=== PATIENT | male | born 1995 ===

== ENCOUNTER 2016-05-26 19:53 | Emergency (ER) | payer SELFPAY ==
[2016-05-26 20:07] VITALS: BMI 29.9
[2016-05-26 20:10] VITALS: RESP 18; TEMP 99.1
[2016-05-26] MEDS ORDERED: DiphenhydrAMINE 50 mg/ml Inj IVP STA (20:24)
--- NOTE | 2016-05-26 20:28 | ED PDOC ---
Arrival/HPI - General Chief Complaint: GI Problem Time Seen by Provider: 05/26/16 20:10 - History of Present Illness Narrative History of Present Illness (Text): 05/26/16 20:25 21 yo male, presents with jurado, n/v, and sore throat. pt states symptoms "worsening over last few days". no fevers, no (+)nausea vomiting, no cough, no urianry changes. took motrin at home. Past Medical History - Provider Review Nursing Documentation Reviewed: Yes - Past History Past History: No Previous - Infectious Disease Hx of Infectious Diseases: None - Tetanus Immunization Tetanus Immunization: Unknown - Past Medical History Past Medical History: No Previous - Psychiatric Hx Psychophysiologic Disorder: No Hx Anxiety: No Hx Bipolar Disorder: No Hx Depression: No Hx Emotional Abuse: No Hx Hallucinations: No Hx Panic Disorder: No Hx Post Traumatic Stress Disorder: No Hx Psychosis: No Hx Physical Abuse: No Hx Schizophrenia: No Hx Sexual Abuse: No Hx Substance Use: No - Surgical History Hx Appendectomy: Yes (2006) - Anesthesia Hx Anesthesia: Yes Hx Anesthesia Reactions: No Hx Malignant Hyperthermia: No - Suicidal Assessment Feels Threatened In Home Enviroment: No Family/Social History - Physician Review Nursing Documentation Reviewed: Yes Family/Social History: Unknown Family HX Smoking Status: Never Smoked Hx Alcohol Use: Yes Frequency of alcohol use: Socially Hx Substance Use: No Hx Substance Use Treatment: No Allergies/Home Meds Allergies/Adverse Reactions: Allergies No Known Allergies Allergy (Verified 09/16/12 14:15) Review of Systems - Review of Systems Constitutional: Normal Eyes: Normal ENT: Normal Respiratory: Normal Cardiovascular: Normal Gastrointestinal: Nausea, Vomiting Genitourinary Male: Normal Musculoskeletal: Normal Skin: Normal Neurological: Headache Endocrine: Normal Hemo/Lymphatic: Normal Psychiatric: Normal Physical Exam Vital Signs Temp Pulse Resp BP Pulse Ox 05/26/16 20:09 99.1 F 89 18 131/77 99 Temperature: Afebrile Blood Pressure: Normal Pulse: Regular Respiratory Rate: Normal Appearance: Positive for: Well-Appearing, Non-Toxic, Comfortable Pain Distress: None Mental Status: Positive for: Alert and Oriented X 3 - Systems Exam Head: Present: Atraumatic, Normocephalic, Other (no meningmus, ambulatory, in nad, smiling. ) Pupils: Present: PERRL Extroacular Muscles: Present: EOMI Conjunctiva: Present: Normal Mouth: Present: Moist Mucous Membranes Pharnyx: Present: ERYTHEMA, EXUDATE Neck: Present: Normal Range of Motion Respiratory/Chest: Present: Clear to Auscultation, Good Air Exchange. No: Respiratory Distress, Accessory Muscle Use Cardiovascular: Present: Regular Rate and Rhythm, Normal S1, S2. No: Murmurs Abdomen: Present: Normal Bowel Sounds. No: Tenderness, Distention, Peritoneal Signs Back: Present: Normal Inspection Upper Extremity: Present: Normal Inspection. No: Cyanosis, Edema Lower Extremity: Present: Normal Inspection. No: Edema Neurological: Present: GCS=15, CN II-XII Intact, Speech Normal, Motor Func Grossly Intact, Normal Sensory Function, Normal Cerebellar Funct, Gait Normal, Memory Normal Skin: Present: Warm, Dry, Normal Color. No: Rashes Psychiatric: Present: Alert, Oriented x 3, Normal Insight, Normal Concentration Medical Decision Making ED Course and Treatment: 05/26/16 21:36 suspected benign jurado. no thunderclap features, no meningmus. pt well appearing in nad, watching tv. labs unremarkable. pt in nad, no menigmus, neuro intact. ambulatory, asking for dc - Lab Interpretations Lab Results: 05/26/16 20:43 05/26/16 20:43 Lab Results 05/26/16 20:43: WBC 7.5, RBC 5.24, Hgb 15.0, Hct 43.9, MCV 83.8, MCH 28.6, MCHC 34.2, RDW 12.4, Plt Count 295, MPV 9.5, Gran % 65.2, Lymph % (Auto) 26.9, Cobb % (Auto) 7.0 H, Eos % (Auto) 0.8 L, Baso % (Auto) 0.1, Gran # 4.88, Lymph # 2.0 , Cobb # 0.5, Eos # 0.1, Baso # 0.01, PT 11.7, INR 1.08, APTT 28.2, Sodium 141, Potassium 4.0, Chloride 99, Carbon Dioxide 32, Anion Gap 14, BUN 17, Creatinine 0.9, Est GFR ( Amer) > 60, Est GFR (Non-Af Amer) > 60, Random Glucose 76 , Calcium 9.2, Total Bilirubin 0.8, AST 30, ALT 31, Alkaline Phosphatase 69, Total Protein 8.4 H, Albumin 4.6, Globulin 3.8, Albumin/Globulin Ratio 1.2, Grp A Beta Strep Ag Negative - Medication Orders Current Medication Orders: Discontinued Medications Diphenhydramine HCl (Benadryl) 25 mg IVP STAT STA Stop: 05/26/16 20:25 Last Admin: 05/26/16 21:12 Dose: 25 MG IVP Administration Document 05/26/16 21:12 SS (Rec: 05/26/16 21:12 SS [id number]) Charges for Administration # of IVP Administrations 1 Sodium Chloride (Sodium Chloride 0.9%) 1,000 mls @ 999 mls/hr IV .Q1H1M STA Stop: 05/26/16 21:35 Last Admin: 05/26/16 21:07 Dose: 999 MLS/HR eMAR Start Stop Document 05/26/16 21:07 SS (Rec: 05/26/16 21:08 SS [id number]) Intravenous Solution Start Date 05/26/16 Start Time 21:08 End Date 05/26/16 End time 22:09 Total Infusion Time 61 Metoclopramide HCl (Reglan) 10 mg IVP STAT STA Stop: 05/26/16 20:25 Last Admin: 05/26/16 21:12 Dose: 10 MG IVP Administration Document 05/26/16 21:12 SS (Rec: 05/26/16 21:12 SS [id number]) Charges for Administration # of IVP Administrations 1 Disposition/Present on Arrival - Present on Arrival Any Indicators Present on Arrival: No History of DVT/PE: No History of Uncontrolled Diabetes: No Urinary Catheter: No History of Decub. Ulcer: No History Surgical Site Infection Following: None - Disposition Have Diagnosis and Disposition been Completed?: Yes Diagnosis: Headache Disposition: HOME/ ROUTINE Disposition Time: 21:38 Condition: STABLE Discharge Instructions (ExitCare): Acute Headache (DC) Additional Instructions: please follow up with your doctor/clinic and specialist return to er with worsening symptoms or concerns Referrals: PCP,NO [Primary Care Provider] - Follow up with primary [facility] at [facility] [place] [Outside] - Follow up with primary [facility] [Outside] - Follow up with primary Juanjose Hudson MD [Staff Provider] - Follow up with primary
[2016-05-26] MEDS ORDERED: Sodium Chloride 0.9% 1,000 ML IV STA (20:35)
[2016-05-26 20:51] LABS: ADD MANUAL DIFF? NO
[2016-05-26 20:57] LABS: BASO # 0.01 K/mm3 (0.0-2.0); BASO % 0.1 % (0.0-3.0); EOS # 0.1 (0.0-0.7); EOS % 0.8 % (1.5-5.0); GRAN # 4.88 (1.4-6.5); GRAN % 65.2 % (50.0-68.0); HEMATOCRIT 43.9 % (42.0-52.0); LYMPH % 26.9 % (22.0-35.0); MEAN CELL VOLUME 83.8 fL (80.0-105.0); MEAN CORPUSCULAR HEMOGLOBIN 28.6 pg (25.0-35.0); MEAN CORPUSCULAR HGB CONC 34.2 g/dl (31.0-37.0); MEAN PLATELET VOLUME 9.5 fl (7.0-11.0); MONO # 0.5 (0.1-0.6); PLATELET COUNT 295 10^3/uL (120.0-450.0); RED CELL DISTRIBUTION WIDTH 12.4 % (11.5-14.5); WHITE BLOOD COUNT 7.5 10^3/ul (4.5-11.0)
[2016-05-26 21:08] LABS: INR 1.08 (0.93-1.08); PARTIAL THROMBOPLASTIN TIME 28.2 Seconds (23.7-30.8)
[2016-05-26 21:12] LABS: ALB/GLOB RATIO 1.2 (1.1-1.8); ALKALINE PHOSPHATASE 69 U/L (38-133); ALT/SGPT 31 U/L (7-56); AST/SGOT 30 U/L (15-59); BILIRUBIN,TOTAL 0.8 mg/dL (0.2-1.3); BLOOD UREA NITROGEN 17 mg/dL (7-21); CALCIUM 9.2 mg/dL (8.4-10.5); CARBON DIOXIDE 32 mmol/L (21-33); CHLORIDE 99 mmol/L (98-107); GFR AFRICAN-AMERICAN > 60; GLUCOSE,RANDOM 76 mg/dL (70-110); SODIUM 141 mmol/L (132-148); TOTAL PROTEIN 8.4 g/dL (5.8-8.3)
[2016-05-26 22:18] VITALS: BP 127/62; PULSE 79; O2SAT 100
== END 2016-05-26 22:18 | disposition home or self-care (01) ==
LOC: ED 19:53
DX: R51 Headache (principal)
CPT/HCPCS: 80053; 85025; 85610; 85730; 87070; 87430; 96361; 96374; 96375; 99283; J1200; J2765; J7040

== ENCOUNTER 2016-06-26 08:45 | Emergency (ER) | payer OTHER ==
[2016-06-26 08:45] VITALS: BMI 29.9
[2016-06-26 09:11] VITALS: RESP 16; TEMP 98.8
--- NOTE | 2016-06-26 09:36 | ED PDOC ---
Arrival/HPI - General Historian: Patient - General Chief Complaint: Upper Extremity Problem/Injury Time Seen by Provider: 06/26/16 09:13 - History of Present Illness Narrative History of Present Illness (Text): 06/26/16 09:24 21 y/o male, no pmh, nkda, c/o rt. shoulder pain x 2 days with no fall or trauma. 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 Pt. has no chest pain or shortness of breath, no palpitation, no other medical or psychological complaints. (Alec Tesfaye) Past Medical History - Provider Review Nursing Documentation Reviewed: Yes - Past History Past History: No Previous - Infectious Disease Hx of Infectious Diseases: None - Tetanus Immunization Tetanus Immunization: Unknown - Past Medical History Past Medical History: No Previous - Psychiatric Hx Psychophysiologic Disorder: No Hx Anxiety: No Hx Bipolar Disorder: No Hx Depression: No Hx Emotional Abuse: No Hx Hallucinations: No Hx Panic Disorder: No Hx Post Traumatic Stress Disorder: No Hx Psychosis: No Hx Physical Abuse: No Hx Schizophrenia: No Hx Sexual Abuse: No Hx Substance Use: No - Surgical History Hx Appendectomy: Yes (2006) - Anesthesia Hx Anesthesia: Yes Hx Anesthesia Reactions: No Hx Malignant Hyperthermia: No - Suicidal Assessment Feels Threatened In Home Enviroment: No Family/Social History - Physician Review Nursing Documentation Reviewed: Yes Family/Social History: Unknown Family HX Smoking Status: Never Smoked Hx Alcohol Use: No Hx Substance Use: No Hx Substance Use Treatment: No Allergies/Home Meds Allergies/Adverse Reactions: Allergies No Known Allergies Allergy (Verified 06/26/16 09:08) Review of Systems - Review of Systems Constitutional: absent: Fatigue, Fevers Eyes: absent: Vision Changes ENT: absent: Hearing Changes Respiratory: absent: Cough, Sputum Cardiovascular: absent: Chest Pain Gastrointestinal: absent: Abdominal Pain, Nausea, Vomiting Musculoskeletal: Arthralgias, Myalgias. absent: Back Pain, Neck Pain, Joint Swelling Skin: absent: Rash, Pruritis, Skin Lesions, Laceration, Abscess Neurological: absent: Headache, Dizziness, Focal Weakness, Gait Changes, Speech Changes, Facial Droop, Disequilibrium, Seizure Physical Exam Vital Signs Reviewed: Yes Temperature: Afebrile Blood Pressure: Normal Pulse: Regular Respiratory Rate: Normal Appearance: Positive for: Well-Appearing, Non-Toxic, Comfortable Pain Distress: Moderate Mental Status: Positive for: Alert and Oriented X 3 - Systems Exam Head: Present: Atraumatic, Normocephalic Pupils: Present: PERRL Extroacular Muscles: Present: EOMI Conjunctiva: Present: Normal Mouth: Present: Moist Mucous Membranes Neck: Present: Normal Range of Motion Respiratory/Chest: Present: Clear to Auscultation, Good Air Exchange. No: Respiratory Distress, Accessory Muscle Use Cardiovascular: Present: Regular Rate and Rhythm, Normal S1, S2. No: Murmurs Abdomen: Present: Normal Bowel Sounds. No: Tenderness, Distention, Peritoneal Signs Back: Present: Normal Inspection Upper Extremity: Present: Normal Inspection. No: Cyanosis, Edema Lower Extremity: Present: Normal Inspection, Other (Rt. shoulder: +ttp on the anterior tendon region with no swelling or rash, no pain with passive movement but pain with the active movement on the rt. shoulder extension, FROM without limitation, sensation intact, motor 5/5, +Radial pulse, capillary refill< 2 seconds, neurovascular intact. ). No: Edema Neurological: Present: GCS=15, Speech Normal, Motor Func Grossly Intact, Gait Normal, Memory Normal Skin: Present: Warm, Dry, Normal Color. No: Rashes Lymphatic: No: Axillary Adenopathy Psychiatric: Present: Alert, Oriented x 3, Normal Insight, Normal Concentration Medical Decision Making ED Course and Treatment: 06/26/16 09:25 -toradol IM -sling -Discharge home with indomethacin, flexeril, sling, heat compression, avoid strenuous exercise or activity, follow up with your own pmd and orthopedic within 2 days, return to the ER for any new or worsening signs or symptoms. (Alec Tesfaye) I was available for consultation during PA evaluation. The chart was reviewed by me, and I agree with disposition. The documented history was done by the physician sack sorter. The documented physical exam was done by the physician sack sorter. The documented procedures were done by the physician sack sorter. ( Musa Mccall) - Medication Orders Current Medication Orders: Discontinued Medications Ketorolac Tromethamine (Toradol) 60 mg IM STAT STA Stop: 06/26/16 09:32 Last Admin: 06/26/16 10:05 Dose: 60 mg Disposition/Present on Arrival - Present on Arrival Any Indicators Present on Arrival: No History of DVT/PE: No History of Uncontrolled Diabetes: No Urinary Catheter: No History of Decub. Ulcer: No History Surgical Site Infection Following: None - Disposition Have Diagnosis and Disposition been Completed?: Yes Disposition Time: 09:36 Patient Plan: Discharge - Disposition Diagnosis: Tendinitis Disposition: HOME/ ROUTINE Condition: GOOD Additional Instructions: -Discharge home with indomethacin, flexeril, sling, heat compression, avoid strenuous exercise or activity, follow up with your own pmd and orthopedic within 2 days, return to the ER for any new or worsening signs or symptoms. Prescriptions: Cyclobenzaprine [Cyclobenzaprine HCl] 10 mg PO TID PRN #21 tab PRN Reason: Other Indomethacin [Indocin] 50 mg PO TID PRN #30 cap PRN Reason: Other Referrals: Matthew Pimentel MD [Staff Provider] - Follow up with primary [facility] [place] [Outside] - Follow up with primary Forms: WORK NOTE
[2016-06-26 10:17] VITALS: BP 110/78; PULSE 70; O2SAT 99
== END 2016-06-26 10:19 | disposition home or self-care (01) ==
LOC: ED 08:45
DX: M75.91 Shoulder lesion, unspecified, right shoulder (principal)
CPT/HCPCS: 96372; 99284; J1885

== ENCOUNTER 2018-06-28 23:05 | Emergency (ER) | payer OTHER ==
[2018-06-28 23:16] VITALS: BMI 31.6
[2018-06-28 23:20] VITALS: BP 124/75; TEMP 98
--- NOTE | 2018-06-28 23:22 | ED PDOC ---
Arrival/HPI - General Historian: Patient - History of Present Illness Narrative History of Present Illness (Text): 06/28/18 23:11 23 y/o male, no significant pmh, nkda, c/o epigastric and periumbilical/LLQ pain x 3 days. Burning and cramping sensation, associated with nausea, no vomiting, no fever or chills, no night sweat, no dizziness, no change in vision, nonight sweat, no rash, no palpitation, no other medical or psychological complaints. <Alec Tesfaye - Last Filed: 06/29/18 01:26> <Katherine Maya - Last Filed: 06/29/18 09:38> - General Time Seen by Provider: 06/28/18 23:11 Past Medical History - Provider Review Nursing Documentation Reviewed: Yes - Past History Past History: No Previous - Infectious Disease Hx of Infectious Diseases: None - Tetanus Immunization Tetanus Immunization: Unknown - Past Medical History Past Medical History: No Previous - Psychiatric Hx Psychophysiologic Disorder: No Hx Anxiety: No Hx Bipolar Disorder: No Hx Depression: No Hx Emotional Abuse: No Hx Hallucinations: No Hx Panic Disorder: No Hx Post Traumatic Stress Disorder: No Hx Psychosis: No Hx Physical Abuse: No Hx Schizophrenia: No Hx Sexual Abuse: No Hx Substance Use: No - Surgical History Hx Appendectomy: Yes (2006) - Anesthesia Hx Anesthesia: Yes Hx Anesthesia Reactions: No Hx Malignant Hyperthermia: No - Suicidal Assessment Feels Threatened In Home Enviroment: No <Alec Tesfaye - Last Filed: 06/29/18 01:26> Family/Social History - Physician Review Nursing Documentation Reviewed: Yes Family/Social History: Unknown Family HX Smoking Status: Never Smoked Hx Alcohol Use: No Hx Substance Use: No Hx Substance Use Treatment: No <Alec Tesfaye - Last Filed: 06/29/18 01:26> Allergies/Home Meds <Alec Tesfaye - Last Filed: 06/29/18 01:26> <Katherine Maya - Last Filed: 06/29/18 09:38> Allergies/Adverse Reactions: Allergies No Known Allergies Allergy (Verified 06/28/18 23:17) Review of Systems - Review of Systems Constitutional: absent: Fatigue, Fevers Eyes: absent: Vision Changes ENT: absent: Hearing Changes Respiratory: absent: SOB, Cough Cardiovascular: absent: Chest Pain Gastrointestinal: Abdominal Pain, Nausea. absent: Diarrhea, Vomiting Musculoskeletal: absent: Arthralgias, Back Pain Skin: absent: Rash, Pruritis Neurological: absent: Headache, Dizziness Hemo/Lymphatic: absent: Adenopathy, Easy Bleeding Psychiatric: absent: Anxiety, Depression, Suicidal Ideation <Alec Tesfaye - Last Filed: 06/29/18 01:26> Physical Exam Vital Signs Reviewed: Yes Temperature: Afebrile Blood Pressure: Normal Pulse: Regular Respiratory Rate: Normal Appearance: Positive for: Well-Appearing, Non-Toxic, Comfortable Pain Distress: Moderate Mental Status: Positive for: Alert and Oriented X 3 - Systems Exam Head: Present: Atraumatic, Normocephalic Pupils: Present: PERRL Extroacular Muscles: Present: EOMI Conjunctiva: Present: Normal Mouth: Present: Moist Mucous Membranes Neck: Present: Normal Range of Motion Respiratory/Chest: Present: Clear to Auscultation, Good Air Exchange. No: Respiratory Distress, Accessory Muscle Use Cardiovascular: Present: Regular Rate and Rhythm, Normal S1, S2. No: Murmurs Abdomen: Present: Tenderness (epigastric and periumbilical/LLQ), Normal Bowel Sounds. No: Distention, Peritoneal Signs, Rebound, Guarding, McBurney's Point Tender, Rovsing's Sign Present, Scars Back: Present: Normal Inspection Upper Extremity: Present: Normal Inspection. No: Cyanosis, Edema Lower Extremity: Present: Normal Inspection. No: Edema Neurological: Present: GCS=15, CN II-XII Intact, Speech Normal Skin: Present: Warm, Dry, Normal Color. No: Rashes Psychiatric: Present: Alert, Oriented x 3, Normal Insight, Normal Concentration <Alec Tesfaye - Last Filed: 06/29/18 01:26> Vital Signs Temp Pulse Resp BP Pulse Ox 06/29/18 02:06 60 18 99 06/28/18 23:17 98.0 F 62 16 124/75 98 <Katherien Maya - Last Filed: 06/29/18 09:38> Medical Decision Making ED Course and Treatment: 06/28/18 23:27 -labs -CT abdomen and pelvis -IVF/pepcid/zofran -Observe and reassess 06/29/18 01:27 -CT abdomen and pelvis There has been appendectomy by history. No acute pathology identified in the abdomen or pelvis. -Labs are non significant -Lipase within normal limit -UA show no UTI -Pt. feels well, pain resolved, will discharge home. -Discharge home with pepcid, zofran, follow up with your own pmd and GI within 2 days, return to the ER for any new or worsening signs or symptoms. - RAD Interpretation Radiology Orders: EXAM: CT Abdomen and Pelvis with IV contrast CLINICAL HISTORY: Epigastric and periumbilical pain TECHNIQUE: Axial computed tomography images of the abdomen and pelvis with intravenous contrast. 813.38 mGy-cm CONTRAST: With; OMNI 350 100 ml COMPARISON: None provided. FINDINGS: LUNG BASES: The lung bases appear clear. No pleural effusions are seen. LIVER: Unremarkable. GALLBLADDER AND BILE DUCTS: The gallbladder appears within normal limits. No radioopaque gallstones are seen. No biliary ductal dilatation is evident. PANCREAS: Unremarkable. SPLEEN: Unremarkable. ADRENAL GLANDS: Unremarkable. KIDNEYS, URETERS, AND BLADDER: The kidneys appear within normal limits. There is no hydronephrosis or hydroureter. No urinary calculi are seen. STOMACH AND BOWEL: Unremarkable appearance of the stomach and bowel. No evidence of bowel obstruction. No evidence suggesting enteritis or colitis. APPENDIX: There has been appendectomy by history. PERITONEUM: No free fluid. No free air. LYMPH NODES: No lymphadenopathy is evident. REPRODUCTIVE: Unremarkable as visualized. VASCULATURE: No evidence of abdominal aortic aneurysm. BONES: No aggressive appearing osseous lesion. No acute osseous pathology evident. MISCELLANEOUS: No acute pathology identified in the abdomen or pelvis. IMPRESSION: 1. There has been appendectomy by history. 2. No acute pathology identified in the abdomen or pelvis. Electronically signed on June 29, 2018 1:23:13 AM EDT by: Amarjit Hameed M.D., Certified by ABR, Diagnostic Radiology Funeral Assistant: Radiologist <Alec Tesfaye Q - Last Filed: 06/29/18 01:26> - Lab Interpretations Lab Results: Total Bilirubin 0.4 mg/dL (0.2-1.3) 06/28/18 23:40 AST 21 U/L (17-59) 06/28/18 23:40 ALT 16 U/L (7-56) 06/28/18 23:40 Alkaline Phosphatase 63 U/L (38-126) 06/28/18 23:40 Total Protein 7.3 g/dL (5.8-8.3) 06/28/18 23:40 Albumin 4.5 g/dL (3.0-4.8) 06/28/18 23:40 Globulin 2.8 gm/dL 06/28/18 23:40 Albumin/Globulin Ratio 1.6 (1.1-1.8) 06/28/18 23:40 Lipase 48 U/L (23-300) 06/28/18 23:40 Urine Color Yellow (YELLOW) 06/28/18 23:40 Urine Appearance Clear (CLEAR) 06/28/18 23:40 Urine pH 6.5 (4.7-8.0) 06/28/18 23:40 Ur Specific Hitchcock 1.010 (1.005-1.035) 06/28/18 23:40 Urine Protein Negative mg/dL (<30 mg/dL) 06/28/18 23:40 Urine Glucose (UA) Negative mg/dL (NEGATIVE) 06/28/18 23:40 Urine Ketones Negative mg/dL (NEGATIVE) 06/28/18 23:40 Urine Blood Negative (NEGATIVE) 06/28/18 23:40 Urine Nitrate Negative (NEGATIVE) 06/28/18 23:40 Urine Bilirubin Negative (NEGATIVE) 06/28/18 23:40 Urine Urobilinogen 0.2 E.U./dL (<1 E.U./dL) 06/28/18 23:40 Ur Leukocyte Esterase Negative Hortensia/uL (NEGATIVE) 06/28/18 23:40 - RAD Interpretation Radiology Orders: 06/28/18 23:25 ABD & PELVIS IV CONTRAST ONLY [CT] Stat - Medication Orders Current Medication Orders: Discontinued Medications Famotidine (Pepcid) 20 mg IVP STAT STA Stop: 06/28/18 23:26 Last Admin: 06/28/18 23:51 Dose: 20 mg IVP Administration Document 06/28/18 23:51 SS (Rec: 06/28/18 23:51 [id number] Charges for Administration # of IVP Administrations 1 Sodium Chloride (Sodium Chloride 0.9%) 1,000 mls @ 999 mls/hr IV .Q1H1M STA Stop: 06/29/18 00:25 Last Admin: 06/28/18 23:51 Dose: 999 mls/hr eMAR Start Stop Document 06/28/18 23:51 SS (Rec: 06/28/18 23:51 [facility] Intravenous Solution Start Date 06/28/18 Start Time 23:51 End Date 06/29/18 End time 00:51 Total Infusion Time 60 Ondansetron HCl (Zofran Inj) 4 mg IVP STAT STA Stop: 06/28/18 23:26 Last Admin: 06/28/18 23:51 Dose: 4 mg IVP Administration Document 06/28/18 23:51 SS (Rec: 06/28/18 23:51 SS [place] [id number]) Charges for Administration # of IVP Administrations 1 <Katherine Maya - Last Filed: 06/29/18 09:38> - 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 <Alec Tesfaye - Last Filed: 06/29/18 01:26> Disposition/Present on Arrival - Present on Arrival Any Indicators Present on Arrival: No History of DVT/PE: No History of Uncontrolled Diabetes: No Urinary Catheter: No History of Decub. Ulcer: No History Surgical Site Infection Following: None - Disposition Have Diagnosis and Disposition been Completed?: Yes Disposition Time: 01:28 Patient Plan: Discharge <Alec Tesfaye - Last Filed: 06/29/18 01:26> <Katherine Maya - Last Filed: 06/29/18 09:38> - Disposition Diagnosis: Gastritis, Abdominal pain Disposition: HOME/ ROUTINE Condition: IMPROVED Additional Instructions: -Discharge home with pepcid, zofran, follow up with your own pmd and GI within 2 days, return to the ER for any new or worsening signs or symptoms. Prescriptions: Famotidine [Pepcid] 20 mg PO BID #20 tab Ondansetron [Zofran] 4 mg PO Q8H PRN #10 tab PRN Reason: Nausea/Vomiting Referrals: Soledad Winston MD [Primary Care Provider] - Follow up with primary Mannie Harper MD [Staff Provider] - Follow up with primary Forms: WORK NOTE Addendum Addendum: 06/29/18 09:17 Spoke with patient and informed him of results of CT imaging. Pt was afebrile without leukocytosis during his ED visit. He states he is feeling better with decreased abdominal pain and denies fever, diarrhea, vomiting. Told pt he can obtain copy of report from medical records if desired. Advised patient to followup with PMD and GI doctor within 2 days. Pt verbalized understanding and states he will followup as instructed. Official CT Read: FINDINGS: LOWER THORAX: The visualized lungs are clear. LIVER: Normal in size with homogeneous enhancement. Fatty liver. No gross lesion or ductal dilatation. GALLBLADDER AND BILE DUCTS: Well distended. No calcified gallstones, wall thickening or pericholecystic fluid. PANCREAS: Normal in size with homogeneous enhancement. No gross lesion or ductal dilatation. SPLEEN: Normal in size and appearance. ADRENALS: No discrete nodule. KIDNEYS AND URETERS: Normal in size with homogeneous enhancement. No hydronephrosis. No solid mass. VASCULATURE: No aortic aneurysm. There are no aortic atherosclerotic calcifications or mural plaque present. BOWEL: Evaluation of the bowel is limited in the absence of oral contrast. The small bowel loops are normal in caliber. There is moderate amount of stool in the ascending and transverse colon. There is apparent mild circumferential mural thickening in the proximal and mid descending colon. No bowel wall thickening or obstruction. APPENDIX: Surgically absent. PERITONEUM: No free fluid. No free air. LYMPH NODES: No enlarged lymph nodes. BLADDER: Well distended and normal in appearance. REPRODUCTIVE: The prostate gland is normal in size. BONES: No acute fracture. Within normal limits for the patient's age. OTHER FINDINGS: There is a small sliding a medical hernia. IMPRESSION: Apparent mild circumferential mural thickening in the proxim al and mid descending colon is nonspecific and could be related to underdistention however nonspecific acute infectious/inflammatory colitis cannot be excluded. Clinical follow-up is advised. <Katherine Maya - Last Filed: 06/29/18 09:38>
[2018-06-28] MEDS ORDERED: Sodium Chloride 0.9% 1,000 ML IV STA (23:25)
[2018-06-28 23:54] LABS: BASO # 0.03 K/mm3 (0.0-2.0); BASO % 0.3 % (0.0-3.0); EOS # 0.2 (0.0-0.7); EOS % 2.1 % (1.5-5.0); HEMOGLOBIN 14.4 g/dL (14.0-18.0); LYMPH # 3.6 (1.2-3.4); MEAN CELL VOLUME 85.3 fl (80.0-105.0); MEAN CORPUSCULAR HEMOGLOBIN 28.2 pg (25.0-35.0); MEAN PLATELET VOLUME 10.2 fl (7.0-11.0); MONO # 0.5 (0.1-0.6); MONO % 4.6 % (1.0-6.0); RBC 5.11 10^6/uL (3.5-6.1); RED CELL DISTRIBUTION WIDTH 12.8 % (11.5-14.5); WHITE BLOOD COUNT 10.8 10^3/uL (4.5-11.0)
[2018-06-28 23:56] LABS: PH,URINE 6.5 (4.7-8.0); URINE APPEARANCE CLEAR (CLEAR); URINE BILIRUBIN NEGATIVE (NEGATIVE); URINE BLOOD NEGATIVE (NEGATIVE); URINE COLOR YELLOW (YELLOW); URINE GLUCOSE (UA) NEGATIVE (NEGATIVE); URINE LEUKOCYTE ESTERASE NEGATIVE Leu/uL (NEGATIVE); URINE PROTEIN NEGATIVE mg/dL (<30 mg/dL); URINE UROBILINOGEN 0.2 E.U./dL (<1 E.U./dL)
[2018-06-29 00:11] LABS: ALB/GLOB RATIO 1.6 (1.1-1.8); ALBUMIN 4.5 g/dL (3.0-4.8); BLOOD UREA NITROGEN 17 mg/dL (7-21); CALCIUM 9.7 mg/dL (8.4-10.5); GFR NON-AFRICAN AMERICAN > 60; LIPASE 48 U/L (23-300)
[2018-06-29] MEDS ORDERED: Iohexol 350 MG/100 ML VIAL ONE (00:20)
[2018-06-29 00:38] LABS: ALT/SGPT 16 U/L (7-56); AST/SGOT 21 U/L (17-59)
[2018-06-29 02:07] VITALS: PULSE 60; RESP 18; O2SAT 99
--- NOTE | 2018-06-29 09:05 | CT ---
Date of service: 06/29/2018 PROCEDURE: CT Abdomen and Pelvis with contrast HISTORY: epigastric and periumbilical pain COMPARISON: None available. TECHNIQUE: CT scan of the abdomen and pelvis was performed after administration of intravenous contrast. Oral contrast was not administered. Coronal and sagittal reformatted images were obtained. Contrast dose: 100 mL Omnipaque 350 Radiation dose: Total exam DLP = 813.38 mGy-cm. This CT exam was performed using one or more of the following dose reduction techniques: Automated exposure control, adjustment of the mA and/or kV according to patient size, and/or use of iterative reconstruction technique. FINDINGS: LOWER THORAX: The visualized lungs are clear. LIVER: Normal in size with homogeneous enhancement. Fatty liver. No gross lesion or ductal dilatation. GALLBLADDER AND BILE DUCTS: Well distended. No calcified gallstones, wall thickening or pericholecystic fluid. PANCREAS: Normal in size with homogeneous enhancement. No gross lesion or ductal dilatation. SPLEEN: Normal in size and appearance. ADRENALS: No discrete nodule. KIDNEYS AND URETERS: Normal in size with homogeneous enhancement. No hydronephrosis. No solid mass. VASCULATURE: No aortic aneurysm. There are no aortic atherosclerotic calcifications or mural plaque present. BOWEL: Evaluation of the bowel is limited in the absence of oral contrast. The small bowel loops are normal in caliber. There is moderate amount of stool in the ascending and transverse colon. There is apparent mild circumferential mural thickening in the proximal and mid descending colon. No bowel wall thickening or obstruction. APPENDIX: Surgically absent. PERITONEUM: No free fluid. No free air. LYMPH NODES: No enlarged lymph nodes. BLADDER: Well distended and normal in appearance. REPRODUCTIVE: The prostate gland is normal in size. BONES: No acute fracture. Within normal limits for the patient's age. OTHER FINDINGS: There is a small sliding a medical hernia. IMPRESSION: Apparent mild circumferential mural thickening in the proxim al and mid descending colon is nonspecific and could be related to underdistention however nonspecific acute infectious/inflammatory colitis cannot be excluded. Clinical follow-up is advised. The final report is tagged to the PA review folder. A preliminary report was provided by [facility].
== END 2018-06-29 02:07 | disposition home or self-care (01) ==
LOC: ED 23:05
DX: K29.70 Gastritis, unspecified, without bleeding (principal)
CPT/HCPCS: 74177; 80053; 81003; 83690; 83735; 85025; 96361; 96374; 96375; 99284; J2405; J7030; Q9967